=== PATIENT | male | born 1945 | race Caucasian/White ===

== ENCOUNTER 2022-01-05 20:41 | Inpatient (IN) | payer OTHER, MEDICAID ==
[~2022-01-05] VITALS: Ht 167.6 cm; Wt 99.8 kg
[2022-01-05 20:41] VITALS: BP 135/80
--- NOTE | 2022-01-05 20:41 | NUR ---
PT RADHA BLS. TAKEN TO BED 7
--- NOTE | 2022-01-05 20:43 | NUR ---
Dr. Lopez examining patient.
--- NOTE | 2022-01-05 20:45 | NUR ---
RECEIVED IN BED 7, RADHA FROM [facility] AFTER SLIP AD FALL IN BATHTUB. PTS SISER AD CALLED 911 AFTER NOT HEARING FROM BROTHER FOR 2-3 DAYS. FIRE DEPT BROKE DOWN DOOR AD FOUND PT IN BATHTUB.PT ALERT WITH C/O BILATERAL LEG PAIN. HEMATOMA NOTED TO BACK OF HEAD.
[2022-01-05] MEDS ORDERED: MORPHINE SULFATE 4 MG/ML SYR IM ONE (20:50)
--- NOTE | 2022-01-05 20:59 | NUR ---
PT TAKEN TO RADIOLOGY
--- NOTE | 2022-01-05 21:40 | NUR ---
PT RETURN FROM RADIOLOGY
--- NOTE | 2022-01-05 21:43 | NUR ---
LAB AT BEDSIDE
[2022-01-05 21:54] LABS: BASOPHILS # (AUTO) 0.1 K/uL (0.00-0.22); BASOPHILS % (AUTO) 0.4 % (0.0-2.0); EOSINOPHILS # (AUTO) 0.1 K/uL (0-0.4); EOSINOPHILS % (AUTO) 0.6 % (0.0-4.0); HEMATOCRIT 51.4 % (36-52); HEMOGLOBIN 17.5 g/dL (12.0-18.0); LYMPHOCYTES % (AUTO) 7.8 % (20.5-51.1); MEAN CORPUSCULAR HEMOGLOBIN 32 pg (27-31); MEAN CORPUSCULAR HGB CONC 34 g/dL (33-37); MEAN CORPUSCULAR VOLUME 92.9 fL (80-94); MONOCYTES # (AUTO) 0.9 K/uL (0.8-1.0); NEUTROPHILS # (AUTO) 10.7 K/uL (1.8-7.7); NEUTROPHILS % (AUTO) 84.2 % (42.2-75.2); PLATELET COUNT (AUTO) 399 K/uL (140-450); RED BLOOD CELL COUNT(AUTO) 5.54 MIL/uL (4.20-6.10); RED CELL DISTRIBUTION WIDTH 13.7 % (11.6-13.7); WHITE BLOOD COUNT (AUTO) 12.7 K/uL (4.8-10.8)
--- NOTE | 2022-01-05 22:05 | NUR ---
[facility] AT BEDSIDE. [facility] : .
[2022-01-05 22:08] LABS: ALBUMIN 2.9 g/dL (3.4-5.0); ANION GAP 17.2 (8-16); ASPARTATE AMINOTRANSFERASE 37 U/L (15-37); CARBON DIOXIDE 29.8 mmol/L (21-32); CHLORIDE 98 mmol/L (98-107); CREATININE 1.7 mg/dL (0.6-1.3); GLUCOSE 144 mg/dL (74-106); SODIUM SERUM 141 mmol/L (136-145); TOTAL BILIRUBIN 1.8 mg/dL (0.0-1.0); UREA NITROGEN, BLOOD 41 mg/dL (7-18)
--- NOTE | 2022-01-05 22:55 | NUR ---
Note undone in EDM - 01/05/22 at 2305 by SHARRON Patient discharged with v/s stable. Written and verbal after care instructions given and explained. Patient alert, oriented and verbalized understanding of instructions. Ambulatory with steady gait. All questions addressed prior to discharge. ID band removed. Patient advised to follow up with PMD. Rx of ALBUTROL, BETAMETHASONE, LOTRIMIN, & PREDNISONE given. Patient educated on indication of medication including possible reaction and side effects. Opportunity to ask questions provided and answered.
--- NOTE | 2022-01-06 | NUR ---
CONTINUES WITH C/O BACK PAIN. REPOSITIONED FOR COMFORT
[2022-01-06] MEDS ORDERED: NACL 0.9% 1,000 ML IV ONE ×2 (01:35→12:00)
[2022-01-06] MEDS ORDERED: LIDOCAINE 5% 1 EA PATCH TP ONE (02:15)
[2022-01-06] MEDS ORDERED: cefTRIAXone 1,000 MG VIAL ONE (02:27)
[2022-01-06 03:31] LABS: APPEARANCE,URINE CLOUDY (CLEAR); BILIRUBIN,URINE 2+ (NEGATIVE); BLOOD, URINE NEGATIVE (NEGATIVE); COLOR,URINE YELLOW (YELLOW); LEUKOCYTE ESTERASE ,URINE 3+ (NEGATIVE); NITRITE, URINE NEGATIVE (NEGATIVE); UGLUCOSE TRACE (NEGATIVE)
[2022-01-06 03:40] LABS: RBC,URINE 11-20 (MOD) /HPF (0-5)
[2022-01-06 03:41] LABS: WBC,URINE 20-60 /HPF (0-5)
[2022-01-06 07:12] LABS: BASOPHILS % (AUTO) 0.4 % (0.0-2.0); CARBON DIOXIDE 30.1 mmol/L (21-32); CHLORIDE 99 mmol/L (98-107); CREATININE 1.5 mg/dL (0.6-1.3); EOSINOPHILS # (AUTO) 0.1 K/uL (0-0.4); EOSINOPHILS % (AUTO) 0.7 % (0.0-4.0); GLUCOSE 120 mg/dL (74-106); HEMATOCRIT 46.7 % (36-52); LYMPHOCYTES % (AUTO) 8.4 % (20.5-51.1); MEAN CORPUSCULAR HEMOGLOBIN 32 pg (27-31); MEAN CORPUSCULAR HGB CONC 34 g/dL (33-37); MEAN CORPUSCULAR VOLUME 92.5 fL (80-94); MONOCYTES # (AUTO) 0.9 K/uL (0.8-1.0); MONOCYTES % (AUTO) 7.9 % (1.7-9.3); NEUTROPHILS # (AUTO) 9.5 K/uL (1.8-7.7); NEUTROPHILS % (AUTO) 82.6 % (42.2-75.2); PLATELET COUNT (AUTO) 327 K/uL (140-450); POTASSIUM 3.1 mmol/L (3.5-5.1); RED BLOOD CELL COUNT(AUTO) 5.04 MIL/uL (4.20-6.10); RED CELL DISTRIBUTION WIDTH 13.8 % (11.6-13.7); SODIUM SERUM 141 mmol/L (136-145); UREA NITROGEN, BLOOD 40 mg/dL (7-18); WHITE BLOOD COUNT (AUTO) 11.6 K/uL (4.8-10.8)
[2022-01-06 08:00] VITALS: BP 120/60
--- NOTE | 2022-01-06 08:14 | NUR ---
PATIENT HAS BEEN SCREENED AND CATEGORIZED MODERATE NUTRITION RISK. PATIENT WILL BE SEEN WITHIN 3-5 DAYS OF ADMISSION. 01/06/22-01/10/[address]
[2022-01-06] MEDS ORDERED: ACETAMINOPHEN 325 MG TAB PO PRN (09:20)
[2022-01-06] MEDS ORDERED: guaiFENesin DM 200/20 MG-10 ML 10 ML UDC PO PRN (09:20)
[2022-01-06] MEDS ORDERED: HYDROcodone/APAP 7.5/325 MG 1 TAB PO PRN (09:20)
[2022-01-06] MEDS: NACL 0.9% 1,000 ML IV SCH (09:20)
[2022-01-06] MEDS ORDERED: ONDANSETRON 4 MG/2 ML VIAL IM/IVP PRN (09:20)
[2022-01-06] MEDS ORDERED: DOCUSATE SODIUM 100 MG GELCAP PO PRN (09:20)
[2022-01-06] MEDS ORDERED: ZOLPIDEM 5 MG TAB PO PRN (09:20)
[2022-01-06] MEDS: TAMSULOSIN 0.4 MG CAP PO SCH (10:21)
[2022-01-06] MEDS: POTASSIUM CHLORIDE 10 MEQ TABER PO PRN (10:23)
[2022-01-06 10:44] LABS: PROTHROMBIN TIME 14.5 secs (10.8-13.4)
[2022-01-06 10:46] LABS: CHOL/HDL RATIO 3.3 (1-4.5); MAGNESIUM 1.7 mg/dL (1.8-2.4); PHOSPHORUS 2.8 mg/dL (2.5-4.9); THYROID STIMULATING HORMONE 3.22 uIU/mL (0.34-3.74)
--- NOTE | 2022-01-06 11:00 | NUR ---
PATIENT'S SISTER AND NEPHEW ARE HERE AND REQUESTING TO MEET DR. MATTHEWS. PER PATIENT'S SISTER THAT PATIENT LIVING IN AN OLD MOTEL CONVERT APARTMENT UNIT. AND PATIENT HAS HX OF HTN, DM,AND ARTHRITIS. PATIENT FALL AND UNABLE TO GET OUT THE BATHTUB FOR 4 DAYS. 1 LITER OF NS BOLT ORDERED AND BACK X-RAY, AND ABDOMINAL US ORDER TO R/O BACK INJURY AND REHYDRATE PATIENT. WILL CONTINUE TO MONITOR.
[2022-01-06 12:00] VITALS: BP 128/69
[2022-01-06] MEDS ORDERED: INSULIN LISPRO SLIDING SCALE 100 UNITS/ML VIAL SUBQ PRN (12:55)
[2022-01-06] MEDS ORDERED: DEXTROSE 50% 50 ML SYR IVP PRN (12:55)
[2022-01-06] MEDS: lisinopriL 5 MG TAB PO SCH (13:47)
[2022-01-06 16:00] VITALS: BP 123/72
[2022-01-06] MEDS: BLOOD GLUCOSE MONITORING 1 DEV DEV FS SCH ×2 (17:07→21:00)
[2022-01-06 18:59] LABS: BARBITURATE, URINE NEGATIVE ng/ml (NEG <=200); BENZODIAZEPINE, URINE NEGATIVE ng/mL (NEG <=200); CANNABINOID, URINE NEGATIVE ng/mL (NEG <=50); COCAINE, URINE NEGATIVE ng/mL (NEG <=300); OPIATE, URINE POSITIVE ng/mL (NEG <=2000); PHENCYCLIDINE SCREEN,URINE NEGATIVE ng/mL (NEG <=25)
--- NOTE | 2022-01-06 19:55 | NUR ---
ENDORSE PATIENT OT PM SHIFT NURSE THAT PATIENT REST IN BED, STABLE, PIV L. AC NS INFUSING AT 60ML/HR.
[2022-01-06 20:00] VITALS: BP 98/52
[2022-01-07] VITALS: BP 98/52
[2022-01-07] MEDS: NACL 0.9% 1,000 ML IV SCH ×2 (02:32→18:13)
[2022-01-07 04:00] VITALS: BP 113/55
[2022-01-07 07:20] LABS: BASOPHILS % (AUTO) 0.6 % (0.0-2.0); EOSINOPHILS # (AUTO) 0.1 K/uL (0-0.4); HEMATOCRIT 40.1 % (36-52); LYMPHOCYTES # (AUTO) 0.9 K/uL (2.0-11.5); LYMPHOCYTES % (AUTO) 12.6 % (20.5-51.1); MEAN CORPUSCULAR VOLUME 93.1 fL (80-94); RED BLOOD CELL COUNT(AUTO) 4.31 MIL/uL (4.20-6.10)
[2022-01-07 07:22] LABS: CARBON DIOXIDE 25.4 mmol/L (21-32); CHLORIDE 102 mmol/L (98-107); CREATININE 1.2 mg/dL (0.6-1.3); GLUCOSE 129 mg/dL (74-106); POTASSIUM 3.4 mmol/L (3.5-5.1); SODIUM SERUM 136 mmol/L (136-145); UREA NITROGEN, BLOOD 32 mg/dL (7-18)
[2022-01-07] MEDS: BLOOD GLUCOSE MONITORING 1 DEV DEV FS SCH ×4 (07:52→21:00)
[2022-01-07 08:00] VITALS: BP 112/57
[2022-01-07 08:02] LABS: HEMOGLOBIN 13.9 g/dL (12.0-18.0); MEAN CORPUSCULAR HEMOGLOBIN 32 pg (27-31); MEAN CORPUSCULAR HGB CONC 35 g/dL (33-37); MONOCYTES # (AUTO) 0.6 K/uL (0.8-1.0); MONOCYTES % (AUTO) 8.6 % (1.7-9.3); NEUTROPHILS # (AUTO) 5.3 K/uL (1.8-7.7); NEUTROPHILS % (AUTO) 76.2 % (42.2-75.2); PLATELET COUNT (AUTO) 256 K/uL (140-450); RED CELL DISTRIBUTION WIDTH 14.1 % (11.6-13.7)
--- NOTE | 2022-01-07 08:51 | NUR ---
PT. WITH LOW SANDEEP SCALE AT HIGH RISK, CONTINUE TO FOLLOW PRESSURE INJURY PREVENTION INTERVENTIONS. -POSITIONING: TURN AND REPOSITION PATIENT Q 2H OR SOONER USE PILLOWS TO KEEP BONY PROMINENCES FROM DIRECT CONTACT WITH SURFACES USE REPOSITIONING WEDGES TO PROVIDE 30-DEGREE ANGLE FOR SIDE LYING POSITIONS OFFLOADING OR FOAM DRESSING TO ALL TUBING TO PREVENT MEDICAL DEVICES RELATED PRESSURE INJURY -RE-EVALUATING AND MANAGING INCONTINENCE MONITOR SKIN CONDITION DURING POSITION CHANGE DO NOT MASSAGE REDNESS, BONY PROMINENCES FREQUENT RAKEL-CARE AND PROVIDE BARRIER CREAMS PRN IF SOILING MOISTURE CONTROL BY OFFER BED CASSIDY/URINAL /ABSORBENT PAD TO WICK AND HOLD MOISTURE KEEP SKIN DRY AND PROTECT FROM FRICTION -MANAGE FRICTION/SHEAR/MOBILITY KEEP HOB AT THE LOWEST LEVEL OF ELEVATION NO MORE THAN 30 DEGREE UNLESS OTHERWISE CONTRAINDICATED USE LIFT SHEET OR TRANSFER DEVICE TO MOVE PATIENT AND PREVENT LATERAL SHEER. PROTECT HEELS, ELBOWS BONY PROMINENCES WITH SKIN BERRIES OR FOAM DRESSING IF EXPOSED TO FRICTION OFFLOAD BILATERAL HEELS BY PLACING PILLOWS UNDER CALVES AT ALL TIMES, UNLESS OTHERWISE CONTRAINDICATED -PRESSURE REDISTRIBUTION SURFACE THERAPY JUAN ISOFLEX MATTRESS -NUTRITION: PLEASE FOLLOW RD RECOMMENDATIONS AND OFFER NUTRITION SUPPLEMENTS IF ORDERED. PLEASE CONTACT WOUND CARE NURSE FOR ANY QUESTION AND CHANGE OF WOUND CONDITION.
[2022-01-07] MEDS: PANTOPRAZOLE 40 MG TABEC PO SCH (09:08)
[2022-01-07] MEDS: TAMSULOSIN 0.4 MG CAP PO SCH (09:08)
[2022-01-07] MEDS: lisinopriL 5 MG TAB PO SCH (09:09)
[2022-01-07] MEDS: POTASSIUM CHLORIDE 10 MEQ TABER PO PRN (10:55)
[2022-01-07 12:00] VITALS: BP 110/55
--- NOTE | 2022-01-07 15:41 | NUR ---
DC PLANNING: THE PATIENT WAS ADMITTED AFTER FALLING AT HOME IN THE BATH ROOM. H/O DM, HTN AND HYPERLIPIDEMIA, PATIENT WAS DOWN FOR 5-8 DAYS. LACTIC ACID 2.4, CK 180. STARTED ON ROCEPHIN, AND IVF'S. RHIANNA SPOKE WITH THE PATIENT AT BEDSIDE AND CONFIRMED HIS ADDRESS AND PHONE NUMBER. THE PATIENT LIVES ALONE IN A GROUND FLOOR APARTMENT AND USES A FWW TO AMBULATE IN THE APARTMENT. HE STATES THAT HOME HEALTH P.T. WAS ORDERED FOR HIM BUT HASN'T STARTED YET. HE SEES HIS PMD REGULARLY AND GOES BY TRANSPORT PROVIDED BY HIS INSURANCE [employer]. THE PATIENT IS WILLING TO GO TO SNF POST DISCHARGE AND WAS REFERRED TO [facility] [place] [place] WHICH IS CONTRACTED WITH HIS INSURANCE. HE WAS ACCEPTED TO ROOM 39B, DR INIGUEZ TO FOLLOW, RHIANNA HAS FAXED AND CALLED [employer] FOR AUTHORIZATION, STILL WAITING FOR CONFIRMATION THAT PATIENT WILL BE APPROVED TO GO TO [facility] [place] [place]. RHIANNA WILL FOLLOW. Addendum: 01/08/22 at 1119 by Emmie Calles CM DC PLANNING: APPROVAL FOR SNF STILL UNDER REVIEW BY [employer], RHIANNA SPOKE WITH Fredy MOCTEZUMA ([phone]) AND ENDORSED THAT THE PATIENT HAS BEEN ACCEPTED TO [facility] [place] [place]. RHIANNA WILL SET UP TRANSPORT ONCE APPROVAL IS RECEIVED BY Fredy. RHIANNA WILL FOLLOW. Addendum: 01/08/22 at 1448 by Emmie Calles CM DC PLANNING: AUTHORIZATION FROM GIVEN TO FRANK. [facility] IS SETTING UP TRANSPORT AND WILL TRY AND SCHEDULE FOR AFTER 1600 THROUGH [employer]. NUMBER TO CALL TO CHECK ON TRANSPORT IS [phone]. TRANSPORT COMPANY NOT YET IDENTIFIED. CM WILL FOLLOW. Addendum: 01/09/22 at 0807 by Emmie Calles CM DC PLANNING: RHIANNA SPOKE WITH [facility], PATIENT WILL BE PICKED UP AT [address] [facility] ([phone]), CHARGE NURSE MADE AWARE. CM WILL FOLLOW.
[2022-01-07 16:00] VITALS: BP 105/58
--- NOTE | 2022-01-07 16:32 | NUR ---
P.T. NOTES P.T. EVAL COMPLETED; REFER TO EVAL FOR DETAILS.
--- NOTE | 2022-01-07 19:30 | NUR ---
RECEIVED ENDORSEMENT FROM DAY SHIFT NURSE FOR CONTINUITY OF PT CARE. PT IS ON STABLE CONDITION.
--- NOTE | 2022-01-07 19:47 | NUR ---
ENDORSE PATIENT OT PM SHIFT NURSE THAT PATIENT REST IN BED, STABLE, W/ PIV L. AC NS INFUSING AT 60ML/HR.
[2022-01-07 20:00] VITALS: BP 96/49
--- NOTE | 2022-01-07 21:00 | NUR ---
PT BLOOD SUGAR = 105, NO SLIDING SCALE COVERAGE.
[2022-01-08] VITALS: BP 110/49
[2022-01-08 04:00] VITALS: BP 105/58
[2022-01-08] MEDS: BLOOD GLUCOSE MONITORING 1 DEV DEV FS SCH ×4 (06:45→21:25)
[2022-01-08 07:25] LABS: ANION GAP 10.7 (8-16); BASOPHILS % (AUTO) 0.5 % (0.0-2.0); CHLORIDE 104 mmol/L (98-107); CREATININE 0.9 mg/dL (0.6-1.3); EOSINOPHILS # (AUTO) 0.1 K/uL (0-0.4); EOSINOPHILS % (AUTO) 2.1 % (0.0-4.0); GLUCOSE 117 mg/dL (74-106); HEMATOCRIT 39.6 % (36-52); HEMOGLOBIN 13.8 g/dL (12.0-18.0); LYMPHOCYTES # (AUTO) 0.7 K/uL (2.0-11.5); LYMPHOCYTES % (AUTO) 13.3 % (20.5-51.1); MEAN CORPUSCULAR HEMOGLOBIN 32 pg (27-31); MEAN CORPUSCULAR HGB CONC 35 g/dL (33-37); MEAN CORPUSCULAR VOLUME 92.2 fL (80-94); MONOCYTES # (AUTO) 0.4 K/uL (0.8-1.0); MONOCYTES % (AUTO) 8.7 % (1.7-9.3); NEUTROPHILS # (AUTO) 3.8 K/uL (1.8-7.7); NEUTROPHILS % (AUTO) 75.4 % (42.2-75.2); PLATELET COUNT (AUTO) 187 K/uL (140-450); POTASSIUM 3.7 mmol/L (3.5-5.1); RED CELL DISTRIBUTION WIDTH 13.5 % (11.6-13.7); SODIUM SERUM 140 mmol/L (136-145); UREA NITROGEN, BLOOD 18 mg/dL (7-18); WHITE BLOOD COUNT (AUTO) 5.1 K/uL (4.8-10.8)
[2022-01-08 08:00] VITALS: BP 93/60
--- NOTE | 2022-01-08 08:29 | NUR ---
PT IS ON STABLE CONDITION. ENDORSED TO DAY SHIFT NURSE.
--- NOTE | 2022-01-08 08:30 | NUR ---
REPORT RECEIVED FROM NIGHTSHIFT RN FOR CONTINUITY OF CARE. PT A/O X3, HOWEVER, SOMETIMES FORGETFUL. PT WITH NO SOB OR RESPIRATORY DISTRESS. ON RA. RR EVEN & UNLABORED. ASSISTED PT WITH CHANGE IN POSITION. IVF @ 60 ML/HR ON LAC #20. NEEDS ALL MET AT THIS TIME. ORAL FLUIDS PROVIDED TO PT. SAFETY MEASURES IN PLACE. ITEMS/CALL LIGHT WITHIN REACH.
[2022-01-08] MEDS ORDERED: PANT40EC56 PO (08:45)
[2022-01-08] MEDS ORDERED: TAMS0.4C96 PO (08:45)
[2022-01-08] MEDS ORDERED: SULF-954 PO (08:45)
[2022-01-08] MEDS: lisinopriL 5 MG TAB PO SCH (09:00)
[2022-01-08] MEDS: TAMSULOSIN 0.4 MG CAP PO SCH (09:25)
[2022-01-08] MEDS: PANTOPRAZOLE 40 MG TABEC PO SCH (09:25)
[2022-01-08] MEDS ORDERED: LISI5TAB18 PO (10:49)
[2022-01-08] MEDS: NACL 0.9% 1,000 ML IV SCH (11:20)
[2022-01-08 12:00] VITALS: BP 109/53
--- NOTE | 2022-01-08 12:00 | NUR ---
PT RESTING WITH EYES CLOSED. RR EVEN & UNLABORED. HOB ELEVATED. IN NO DISTRESS. HOURLY ROUNDS CONDUCTED.
[2022-01-08 16:00] VITALS: BP 109/69
--- NOTE | 2022-01-08 17:15 | NUR ---
DISCHARGE INSTRUCTIONS COMPLETED AND REPORT GIVEN TO [facility] BY CRISTINA MOCTEZUMA. DISCHARGE INSTRUCTIONS GIVEN TO PT. PT VERBALIZED UNDERSTANDING. IV REMOVED, CATHETER INTACT. NO ACTIVE BLEEDING. SAFETY MEASURES IN PLACE. ITEMS/CALL LIGHT WITHIN REACH.
--- NOTE | 2022-01-08 19:24 | NUR ---
REPORT GIVEN TO NIGHTSHIFT RN FOR CONTINUITY OF CARE.
[2022-01-08 20:00] VITALS: BP 112/56
--- NOTE | 2022-01-08 20:00 | NUR ---
RECEIVE IN BED AWAITING TRANSFER TO [facility]
--- NOTE | 2022-01-08 21:00 | NUR ---
TRANSPORT TO [facility] WAS CALLED FOR TIME OF PICK WAS INFORMED THAT THEY AREBACKED UP AND IS UNABLE TO TRANSPORT PATIENT [facility] CHARGE NURSE AND PATIENT SISTER EZEQUIEL IS AWARE OF SAME PT ISINFORMED OF SAME MADE COMFORTABLE IN BED
[2022-01-09] VITALS: BP 104/62
[2022-01-09 04:00] VITALS: BP 116/64
[2022-01-09] MEDS: NACL 0.9% 1,000 ML IV SCH (04:00)
[2022-01-09 07:21] LABS: BASOPHILS % (AUTO) 0.9 % (0.0-2.0); EOSINOPHILS # (AUTO) 0.1 K/uL (0-0.4); EOSINOPHILS % (AUTO) 2.8 % (0.0-4.0); HEMATOCRIT 37.9 % (36-52); HEMOGLOBIN 13.1 g/dL (12.0-18.0); LYMPHOCYTES # (AUTO) 0.9 K/uL (2.0-11.5); LYMPHOCYTES % (AUTO) 20.1 % (20.5-51.1); MEAN CORPUSCULAR HEMOGLOBIN 32 pg (27-31); MEAN CORPUSCULAR HGB CONC 35 g/dL (33-37); MEAN CORPUSCULAR VOLUME 91.7 fL (80-94); MONOCYTES # (AUTO) 0.4 K/uL (0.8-1.0); MONOCYTES % (AUTO) 9.5 % (1.7-9.3); NEUTROPHILS # (AUTO) 2.9 K/uL (1.8-7.7); NEUTROPHILS % (AUTO) 66.7 % (42.2-75.2); PLATELET COUNT (AUTO) 173 K/uL (140-450); RED BLOOD CELL COUNT(AUTO) 4.13 MIL/uL (4.20-6.10); RED CELL DISTRIBUTION WIDTH 13.9 % (11.6-13.7); WHITE BLOOD COUNT (AUTO) 4.4 K/uL (4.8-10.8)
--- NOTE | 2022-01-09 07:30 | NUR ---
RECEIVED REPORT FROM AGENT BASED MODELER FOR CONTINUITY OF CARE. PATIENT LYING DOWN IN BED WATCHING TV. NO DISTRESS NOTED. DENIES ANY PAIN. NO IV SITE, PATIENT AWAITING TO BE DISCHARGED [place] [facility] [place] WAS SUPPOSED TO BE DISCHARGED LAST NIGHT BUT THERE WAS ISSUES ON PAPERWORK. WILL CONFIRM WITH CM LATER TODAY. REVIEWED PLAN OF CARE WITH PATIENT. VERBALIZED UNDERSTANDING. SAFETY MEASURES IN PLACE, CALL LIGHT WITHIN REACH. WILL CONTINUE TO MONITOR.
[2022-01-09 07:41] LABS: CARBON DIOXIDE 27.5 mmol/L (21-32); CHLORIDE 103 mmol/L (98-107); CREATININE 0.9 mg/dL (0.6-1.3); GLUCOSE 95 mg/dL (74-106); POTASSIUM 3.5 mmol/L (3.5-5.1); SODIUM SERUM 136 mmol/L (136-145); UREA NITROGEN, BLOOD 12 mg/dL (7-18)
[2022-01-09] MEDS: BLOOD GLUCOSE MONITORING 1 DEV DEV FS SCH (07:55)
[2022-01-09 08:00] VITALS: BP 123/59
[2022-01-09] MEDS: lisinopriL 5 MG TAB PO SCH (09:16)
[2022-01-09] MEDS: PANTOPRAZOLE 40 MG TABEC PO SCH (09:16)
[2022-01-09] MEDS: TAMSULOSIN 0.4 MG CAP PO SCH (09:16)
--- NOTE | 2022-01-09 09:17 | NUR ---
SCHEDULED MEDICATIONS DUE GIVEN. WILL CONTINUE TO MONITOR.
--- NOTE | 2022-01-09 09:38 | NUR ---
CALLED [facility] AND GAVE REPORT TO RENETTA STEARNS. ANSWERED ALL OF HER QUESTIONS AND NOTIFIED HER OF TRANSPORT TIME AROUND 1000. VERBALIZED UNDERSTANDING. CALLED PATIENT SISTER JOB AND LET HER KNOW THAT PATIENT WAS BEING TRANSFERRED. ANSWERED ALL OF HER QUESTIONS. VERBALIZED UNDERSTANDING. DISCHARGE INSTRUCTIONS PROVIDED TO PATIENT IN PREFERRED LANGUAGE OF BELARUSIAN. INSTRUCTIONS ON NEW/CHANGED MEDICATION REGIMEN, SIDE EFFECTS, DISEASE MANAGEMENT OF UTI, AND FALL SAFETY PRECAUTIONS. ANSWERED ALL OF PATIENT'S QUESTIONS REGARDING DISCHARGE. IV SITE ALREADY REMOVED.AWAITING FOR TRANSPORTATION TIME.
--- NOTE | 2022-01-09 10:29 | NUR ---
TRANSPORTERS ON UNIT TO TRANSFER PATIENT TO [facility]. PATIENT TRANSFERRED AT THIS TIME IN STABLE CONDITION.
== END 2022-01-09 10:30 | DRG 871 ==
LOC: MED 20:41 → MTU 01-06 04:01
PROVIDERS: ADMIT Student in an Organized Health Care Education/Training Program; ATTEND Student in an Organized Health Care Education/Training Program
DX: A41.9 Sepsis, unspecified organism (principal); N17.0 Acute kidney failure with tubular necrosis; E87.2 Acidosis; N39.0 Urinary tract infection, site not specified; M62.82 Rhabdomyolysis; E86.0 Dehydration; N40.0 Benign prostatic hyperplasia without lower urinary tract symptoms; I10 Essential (primary) hypertension; E11.9 Type 2 diabetes mellitus without complications; E78.5 Hyperlipidemia, unspecified; M54.9 Dorsalgia, unspecified; Z20.822 Contact with and (suspected) exposure to COVID-19
CPT/HCPCS: 36415; 70450; 72080; 73562; 73610; 76770; 80048; 80053; 80305; 81001; 82550; 82948; 83605; 83735; 83880; 84100; 84443; 85025; 85610; 85730; 87040; 87081; 87086; 96365; 96372; 97110; 97112; 97116; 97530; 99285; J0696; J1815; J2270; J7060; Q0092